=== PATIENT | male | born 1960 | race Caucasian/White ===

== ENCOUNTER 2020-08-28 14:31 | Emergency (ER) | payer BC ==
[~2020-08-28] VITALS: Ht 182.9 cm; Wt 102.1 kg
[~2020-08-28 14:31] MED LIST: BENICAR20 MG PO; CELECOXIB200 MG PO; HYDROCODON-ACE1 EA11 PO; LOSARTAN POTASS25 MG PO; TESTOSTERO100 MG/1 M IM
[2020-08-28] MEDS ORDERED: DOXAZOSIN MESYLA2 MG PO (14:58)
[2020-08-28] MEDS ORDERED: AUGMENTIN 875-1 EACH PO (18:50)
== END 2020-08-28 19:01 | disposition home or self-care (01) ==
LOC: ED 14:31
DX: K57.32 Diverticulitis of large intestine without perforation or abscess without bleeding (principal); I10 Essential (primary) hypertension; Z88.8 Allergy status to other drugs, medicaments and biological substances; Z79.899 Other long term (current) drug therapy
CPT/HCPCS: 36415; 74177; 80053; 81001; 83690; 83735; 85025; 99284-25; Q9967

== ENCOUNTER 2021-12-31 08:38 | Emergency (ER) | payer BC ==
[~2021-12-31] VITALS: Ht 182.9 cm; Wt 96.9 kg
[~2021-12-31 08:38] MED LIST changes: +AUGMENTIN 875-1 EACH PO; +DOXAZOSIN MESYLA2 MG PO; +FLOMAX0.4 MG PO; +LEVOFLOXACIN500 MG PO; +OXYCODONE HCL5 MG PO; +RAPAFLO8 MG PO
[2021-12-31] MEDS ORDERED: PYRIDIUM200 MG PO (09:42)
[2021-12-31] MEDS ORDERED: OXYBUTYNIN CHLOR5 M1 PO (09:42)
[2021-12-31] MEDS ORDERED: CEPHALEXIN500 M1 PO (09:42)
== END 2021-12-31 09:51 | disposition home or self-care (01) ==
LOC: ED 08:38
DX: N39.0 Urinary tract infection, site not specified (principal); N32.89 Other specified disorders of bladder; I10 Essential (primary) hypertension; R19.5 Other fecal abnormalities; Z88.8 Allergy status to other drugs, medicaments and biological substances; Z91.09 Other allergy status, other than to drugs and biological substances; Z79.899 Other long term (current) drug therapy
CPT/HCPCS: 51798; 81001; 99283-25; A9270

== ENCOUNTER 2023-05-29 07:43 | Day surgery (SDC) | payer BC ==
[~2023-05-29] VITALS: Ht 177.8 cm; Wt 101.2 kg
[~2023-05-29 07:43] MED LIST changes: +CEPHALEXIN500 M1 PO; +OXYBUTYNIN CHLOR5 M1 PO; +PYRIDIUM200 MG PO
[2023-05-29 07:58] VITALS: BP 156/93
[2023-05-29] MEDS ORDERED: [UNRECOGNIZED DRUG - OTHER] (08:10)
--- NOTE | 2023-05-29 10:12 | NUR ---
05/29/23 1012 Sheets,Brooke 0957 PT ARRIVED TO PACU ON 2L VIA NC, PT SNORING AND RESP EVEN AND UNLABORED. 1000 PT WOKE TO TACTILE STIMULI AND DENIES CONCERNS. 1012 PT ROLLS TO BACK AND SIPPING WATER. HOB INCREASED SLIGHTLY.
[2023-05-29 10:13] VITALS: BP 121/82
--- NOTE | 2023-05-30 08:27 | OR ---
[facility] [address], [place] [address] Signed DATE OF OPERATION: 05/29/2023 SURGEON: Brian Lazar MD PREOPERATIVE DIAGNOSIS: Screening. POSTOPERATIVE DIAGNOSES: 1. 4 mm polyp at 6 cm in the rectum. 2. 4 mm polyp at 8 cm in the rectum. PROCEDURE: Colonoscopy with hot biopsy. ESTIMATED BLOOD LOSS: None. INDICATIONS: Sylvester is a 62-year-old gentleman, asked to see me for a followup colonoscopy. He spoke of a negative colonoscopy in 2012 at the age of 52 [address] Sam. We did not have those results at the time of his office visit. He said he has no lower GI complaints. There is no family history of colon cancer or polyps. In the office, I gave him a pamphlet on colonoscopy. He understands the nature of the test. There is risk including, but not limited to gas bloating, crampy abdominal pain, bleeding, perforation requiring surgery, and missed diagnosis. We also reviewed the written instructions for his bowel prep line by line. He also has rather significant asthma even to alcohol-based sanitizers that are present in doctors offices. He told me he also has very severe obstructive sleep apnea requiring CPAP mask. He said he cannot sleep without a CPAP mask. In that regard, we asked for monitored anesthesia care with propofol infusion. He had expressed understanding and wished to proceed. PROCEDURE NOTE: Sylvester was taken into our endoscopy suite and placed in the left lateral decubitus position. He was given monitored anesthesia care with propofol per our nurse business taxes specialist. A digital rectal exam was performed. There were no external hemorrhoids. He had good sphincter tone. There were no masses. His prostate is becoming enlarged and indurated. The adult colonoscope had been introduced and advanced under direct visualization of the camera. He did need some up-titration of propofol to help him relax. We came around into the cecum with mild abdominal compression. Overall, his prep was good. The scope had been slowly withdrawn. We could easily see the Electronically Signed By: BRIAN LAZAR MD 05/30/23 0827 PATIENT NAME: SYLVESTER HELLER OPERATIVE REPORT DATE OF : 64 REPORT #: [id number] PHYSICIAN: BRIAN LAZAR MD PCP: TRINA BOWDEN PA-C REPORT IS CONFIDENTIAL AND NOT TO BE RELEASED WITHOUT AUTHORIZATION [address] [address] Signed appendiceal orifice and ileocecal valve. We found no polyps in the colon. We found no diverticula. He had two tiny polyps in his rectum. They were easily removed with the help of hot biopsy forceps. Upon retroflexion of the scope, we did not see any obvious pathology above the anal canal. After this, the gas was suctioned out and the colonoscope removed. Sylvester tolerated the procedure quite well. RECOMMENDATIONS: I will see Sylvester back in my office in 7 to 14 days to review his results. Brian Lazar MD ALB/MODL /[id number] cc: TERRI Singer MD Copies: TRINA BOWDEN PA-C, ANDREW L MD ~ Electronically Signed By: BRIAN LAZAR MD 05/30/23 0827 PATIENT NAME: SYLVESTER HELLER OPERATIVE REPORT DATE OF : 64 REPORT #: [id number] PHYSICIAN: BRIAN LAZAR MD PCP: TRINA BOWDEN PA-C REPORT IS CONFIDENTIAL AND NOT TO BE RELEASED WITHOUT AUTHORIZATION
== END 2023-05-29 10:28 | disposition home or self-care (01) ==
LOC: OPS 07:43 → DS 07:48 → OPS 09:00 → DS 09:00 → OPS 10:28 → DS 13:00
PROVIDERS: ATTEND Colon & Rectal Surgery
PROC: 0DBP8ZX Excision of Rectum, Via Natural or Artificial Opening Endoscopic, Diagnostic (ICD-10-PCS; principal; 2023-05-29 09:00)
DX: Z12.11 Encounter for screening for malignant neoplasm of colon (principal); K62.1 Rectal polyp
CPT/HCPCS: 00811; 99153; G0500; J2001; J2704; J7121